=== PATIENT | female | born 1990 | race Hispanic/Latino ===

== ENCOUNTER 2018-05-11 09:38 | Emergency (ER) | payer OTHER ==
[2018-05-11 09:49] VITALS: BP 121/79
[2018-05-11 10:32] LABS: HCG Qualitative,Urine Negative (Negative)
[2018-05-11] MEDS ORDERED: TORADOL IV ONE (10:54)
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
--- NOTE | 2018-05-11 13:12 | XRay Report ---
LEFT FOREARM: History: Pain. AP and lateral views of the forearm demonstrate normal mineralization and contours for this patient's age. No destructive changes are noted and the adjacent soft tissues are normal. IMPRESSION: Normal left forearm.
--- NOTE | 2018-05-11 13:12 | XRay Report ---
LEFT HAND, 3 views: History: Pain. The bony architecture is intact. Bony alignment is normal. No soft tissue abnormalities are seen. The joint spaces appear preserved. IMPRESSION: Normal left hand.
== END 2018-05-11 11:46 | disposition home or self-care (01) ==
LOC: ED 09:38
DX: S50.12XA Contusion of left forearm, initial encounter (principal); X58.XXXA Exposure to other specified factors, initial encounter; Y93.89 Activity, other specified; Y92.89 Other specified places as the place of occurrence of the external cause; Y99.8 Other external cause status
CPT/HCPCS: 73090; 73130; 81025; 96374; 99284; J1885